=== PATIENT | male | born 1975 | race Caucasian/White ===

== ENCOUNTER → 2019-04-08 | Outpatient (CLI) | payer OTHER ==
[~2019-04-08] MED LIST: LEVAQUIN 5500 MG/TA1 PO; LORTAB 5/500 501 TAB PO; NO HOME MEDICATIONS
== END ==
LOC: COL.RAD 11:07
DX: R10.84 Generalized abdominal pain (principal); R19.8 Other specified symptoms and signs involving the digestive system and abdomen
CPT/HCPCS: Q9967

== ENCOUNTER 2019-05-03 05:47 | Day surgery (SDC) | payer OTHER ==
[~2019-05-03] VITALS: Ht 190.5 cm; Wt 89.4 kg
[2019-05-03 06:16] VITALS: BP 94/69; PULSE 71; TEMP 98.4
[2019-05-03 07:37] VITALS: BP 98/61; PULSE 64; TEMP 97.4
--- NOTE | 2019-05-03 07:37 | NUR ---
The patient arrived back to [facility] from the endoscopy suite at this time. The patient appears drowsy but ambulated from the cart to the recliner in the room with the stand by assistance of one nurse. Post procedure vital signs were started at this time. at bedside. Call light is within reach. Will continue to monitor the patient.
[2019-05-03 07:50] VITALS: BP 99/66; PULSE 63; TEMP 98.6
--- NOTE | 2019-05-03 07:50 | NUR ---
The patient appears to be resting comfortably in the recliner at this time. The patient's vital signs appear stable. The patient requests to try some orange juice and applesauce at this time. Will continue to monitor the patient.
[2019-05-03 08:00] VITALS: BP 100/74; PULSE 64; TEMP 97.2
--- NOTE | 2019-05-03 08:00 | NUR ---
The patient has finished his food and drink and voices a desire to be discharged home.
--- NOTE | 2019-05-03 08:10 | NUR ---
Discharge instructions were reviewed with the patient and his at this time. They both verbalized understanding and have no questions for the nurse at this time. The patient's IV to his right hand was removed and a pressure dressing was applied to the site. The nurse instructed the patient to get dressed and notify the staff when he is ready to be escorted out.
--- NOTE | 2019-05-03 08:22 | NUR ---
The patient was escorted out via wheelchair to a private vehicle by FRANCISCO JAVIER Jefferson. The patient's belongings and discharge paperwork were sent with him. The patient's is present to drive him home.
[2019-05-03 08:40] VITALS: BP 118/855; PULSE 70
== END 2019-05-03 08:22 | disposition home or self-care (01) ==
LOC: SDCO 05:47
DX: D12.0 Benign neoplasm of cecum (principal); R19.7 Diarrhea, unspecified; R10.13 Epigastric pain; R14.0 Abdominal distension (gaseous); K59.00 Constipation, unspecified; Z88.6 Allergy status to analgesic agent; Z79.82 Long term (current) use of aspirin
CPT/HCPCS: J2250; J3010; J7030